=== PATIENT | female | born 1990 | race African-American/Black ===

== ENCOUNTER 2018-08-08 04:33 | Inpatient (IN) | payer OTHER ==
[~2018-08-08] VITALS: Ht 162.6 cm; Wt 86.1 kg
[~2018-08-08 04:33] MED LIST: FERR28TA PO; PREN-39 PO
[2018-08-08] MEDS ORDERED: LACTATED RINGER'S 1,000 ML IV SCH (05:36)
[2018-08-08 05:40] VITALS: Ht 162.6 cm; Wt 86.1 kg
[2018-08-08] MEDS ORDERED: OXYTOCIN 30 UNITS/LR 500 ML IV PRN ×2 (06:00→09:00)
[2018-08-08] MEDS ORDERED: CEFAZOLIN 2 GM/50 ML (PMX) 50 ML IVPB SCH (06:00)
[2018-08-08] MEDS ORDERED: OXYTOCIN 30 UNITS/LR 500 ML IV SCH ×2 (06:00→08:50)
[2018-08-08] MEDS ORDERED: MISOPROSTOL 200 MCG TAB PR PRN ×2 (06:00→09:00)
[2018-08-08] MEDS ORDERED: CARBOPROST 250 MCG INJ IM PRN ×2 (06:00→09:00)
[2018-08-08] MEDS ORDERED: METHYLERGONOVINE 0.2 MG INJ IM PRN ×2 (06:00→09:00)
[2018-08-08] MEDS ORDERED: BUPIVACAINE 0.75%/DEXT (SPINAL) 2 ML INJ ONE (07:33)
[2018-08-08] MEDS ORDERED: morphine SULFATE/PF (10 MG/10 ML) INJ ONE (07:33)
[2018-08-08] MEDS ORDERED: ONDANSETRON 4 MG INJ ONE (08:04)
[2018-08-08] MEDS ORDERED: METOCLOPRAMIDE 10 MG INJ ONE (08:05)
[2018-08-08] MEDS ORDERED: MIDAZOLAM 1 MG/ML 2 ML INJ ONE ×2 (08:14)
[2018-08-08] MEDS ORDERED: OXYTOCIN 10 UNIT INJ ONE ×2 (08:16→08:47)
[2018-08-08] MEDS ORDERED: LACTATED RINGER'S 1,000 ML IV ONE (08:22)
[2018-08-08] MEDS ORDERED: HYDROmorphONE 0.5 MG/0.5 ML SYG IV PRN ×2 (08:30)
[2018-08-08] MEDS ORDERED: KETOROLAC 30 MG INJ IV PRN (08:30)
[2018-08-08] MEDS ORDERED: NALBUPHINE HCL (10 MG/1 ML) INJ IV PRN (08:30)
[2018-08-08] MEDS ORDERED: MEPERIDINE 25 MG INJ IV PRN (08:30)
[2018-08-08] MEDS ORDERED: ZOLPIDEM 5 MG TAB PO PRN (08:30)
[2018-08-08] MEDS ORDERED: MIDAZOLAM 1 MG/ML 2 ML INJ IV PRN (08:30)
[2018-08-08] MEDS ORDERED: ONDANSETRON 4 MG INJ IV PRN ×2 (08:30)
[2018-08-08] MEDS ORDERED: NALOXONE (0.4 MG/ML) INJ IV PRN (08:30)
[2018-08-08] MEDS ORDERED: DIPHENHYDRAMINE 50 MG INJ IV PRN ×2 (08:30)
--- NOTE | 2018-08-08 08:31 | PREAC ---
Date/Time of Note Date/Time of Note DATE: 08/08/18 TIME: 08:28 Anesthesia Eval and Record Evaluation Time Pre-Procedure Interview DATE: 08/08/18 TIME: 07:33 Age 28 Sex female NPO: 8 hrs Preoperative diagnosis iup @ 39 wks., prev. c/s, contractions Planned procedure repeat c/s Past Medical History Past Medical History: Includes : : (4), Para: (3), Gestational age: (39 wks.) Surgery & Anesthesia Issues No known issue Meds Anticoagulation: No Beta Rui within 24 hr: No Reason Beta Rui not given: Pt. not on B-Rui Reported Medications Ferrous Sulfate (Ferrous Sulfate) 1 Tab Tablet, 1 TAB PO DAILY 12/23/12 Vits W-Ca,Fe,Fa(<1MG) ( Vitamins) 1 Tab Tablet, 1 TAB PO DAILY 12/23/12 Current Medications Lactated Ringer's 1,000 ml @ 125 mls/hr Q8H IV Last administered on 08/08/18at 06:15; Admin Dose 125 MLS/HR; Start 08/08/18 at 05:36 Cefazolin Sodium/ Dextrose 50 ml @ 100 mls/hr ONCE IVPB ; Start 08/08/18 at 06:00 Oxytocin/Lactated Ringer's 500 ml @ 125 mls/hr POST IV ; Start 08/08/18 at 06:00 Oxytocin/Lactated Ringer's 500 ml @ 0 mls/hr ONCE PRN IV .VAGINAL BLEEDING; Start 08/08/18 at 06:00 Methylergonovine Maleate (Methergine) 0.2 mg ONCE PRN IM .VAGINAL BLEEDING; Start 08/08/18 at 06:00 Carboprost Tromethamine (Hemabate) 250 mcg ONCE PRN IM .VAGINAL BLEEDING; Start 08/08/18 at 06:00 Misoprostol (Cytotec) 1,000 mcg ONCE PRN [place] .VAGINAL BLEEDING; Start 08/08/18 at 06:00 Naloxone HCl (Narcan) 0.1 mg Q2M PRN IV .RESP RATE; Start 08/08/18 at 08:30; Stop 08/09/18 at 08:29; Status UNV Ketorolac Tromethamine (Toradol) 30 mg Q6H PRN IV PAIN AFTER CSECTION; Start 08/08/18 at 08:30; Stop 08/09/18 at 08:29; Status UNV Hydromorphone HCl (Dilaudid) 0.2 mg Q3H PRN IV .PAIN 1-5; Start 08/08/18 at 08:30; Stop 08/09/18 at 08:29; Status UNV Hydromorphone HCl (Dilaudid) 0.4 mg Q3H PRN IV .PAIN 6-10; Start 08/08/18 at 08:30; Stop 08/09/18 at 08:29; Status UNV Diphenhydramine HCl (Benadryl) 25 mg Q6H PRN IV .ITCHING; Start 08/08/18 at 08:30; Stop 08/09/18 at 08:29; Status UNV Nalbuphine HCl (Nubain) 2 mg ONCE PRN IV .ITCHING; Start 08/08/18 at 08:30; Stop 08/09/18 at 08:29; Status UNV Ondansetron HCl (Zofran Inj) 4 mg Q6H PRN IV .NAUSEA/VOMITING; Start 08/08/18 at 08:30; Stop 08/09/18 at 08:29; Status UNV Zolpidem Tartrate (Ambien) 5 mg HS MAY REPEAT X 1 PRN PO .INSOMNIA; Start 08/08/18 at 08:30; Stop 08/09/18 at 08:29; Status UNV Miscellaneous Information (* Miscellaneous Pharmacy Order) Duramorph: 0.2 mg Spi... GIVEN XX ; Start 08/08/18 at 08:30; Status UNV Lactated Ringer's 1,000 ml @ 1,000 mls/hr Q1H ONCE IV ; Start 08/08/18 at 08:22; Stop 08/08/18 at 09:21; Status UNV Ondansetron HCl (Zofran Inj) 4 mg PACU ORDER PRN IV NAUSEA/VOMITING; Start 08/08/18 at 08:30; Status UNV Meperidine HCl (Demerol) 25 mg PACU ORDER PRN IV .RIGORS; Start 08/08/18 at 08:30; Status UNV Diphenhydramine HCl (Benadryl) 25 mg PACU ORDER PRN IV .PRURITUS; Start 08/08/18 at 08:30; Status UNV Midazolam HCl (Versed) 0.5 mg PACU ORDER PRN IV .ANXIETY; Start 08/08/18 at 08:30; Status UNV Meds reviewed: Yes Allergies Coded Allergies: No Known Drug Allergy (Verified Allergy, Unknown, 09/12/08) Allergies Reviewed: Yes Labs/Studies Labs Reviewed: Reviewed by anesthesiologist Result Diagram: 08/08/18 0615 Laboratory Tests 08/08/18 06:15 Blood Bank Test 08/08/18 06:15 Antibody Screen NEGATIVE Blood Type A POSITIVE Rh Immune Globulin Candidate NO test: Positive Pre-procedure Exam Airway: Adequate mouth opening, Adequate thyromental dist Mallampati: Mallampati II Teeth: Normal Lung: Normal Heart: Normal ASA Physical Status ASA physical status: 2 Emergency: E Planned Anesthetic General/MAC: TIVA Neuraxial: Spinal Planned Pain Management Sub-arachniod narcotics Pre-operative Attestations Prior to commencing anesthesia and surgery, the patient was re-evaluated, there was verification of: *The patient's identity *The results of appropriate recent lab work and preoperative vital signs *The above evaluation not changing prior to induction *Anesthetic plan, risk benefits, alternative and complications discussed with patient/family; questions answered; patient/family understands, accepts and wishes to proceed. EWELINA SAEED MD Aug 08, 2018 08:31
--- NOTE | 2018-08-08 08:32 | PAC ---
Date/Time of Note Date/Time of Note DATE: 08/08/18 TIME: 14:00 Post-Anesthesia Notes Post-Anesthesia Note Activity: WNL Respiratory function: WNL Cardiovascular function: WNL Mental status: Baseline Pain reasonably controlled: Yes Hydration appropriate: Yes Nausea/Vomiting absent: Yes EWELINA SAEED MD Aug 08, 2018 08:32
--- NOTE | 2018-08-08 08:34 | OPPN ---
Date/Time of Note Date/Time of Note DATE: 08/09/18 TIME: 00:30 Anesthesia Follow up Anesthesia Follow up Respiratory function: WNL Cardiovascular function: WNL Comments S: pt. pod #1, min. bt pain. min. need for bt pain meds ie. nsaids/opiates. ambulating. min. n/v O: vss, afeb. A: min. bt pain sec. to it mso4. P: no complications. EWELINA SAEED MD Aug 08, 2018 08:34
[2018-08-08] MEDS ORDERED: DIPHENHYDRAMINE 50 MG INJ ONE (08:38)
[2018-08-08] MEDS ORDERED: KETOROLAC 30 MG INJ ONE (08:49)
--- NOTE | 2018-08-08 08:50 | OPPN ---
Date/Time of Note Date/Time of Note DATE: 08/08/18 TIME: 08:47 Operative Report Planned Procedure Procedure date Aug 08, 2018 Procedure(s) repeat low transverse CD with lysis of adhesions Performed by see signature line Mobile Pet Groomer: ANNA CHERY MD 2nd Mobile Pet Groomer none Pre-procedure diagnosis iup at 39 wks ga, previous CD X 3 desires elective repeat CD, decline [id number] Anesthesia Type: Pyfyn7h spinal Post-Procedure Post-procedure diagnosis same Findings a viable male 9/9 weight 8lb 5lb. adhesion b/t the anterior utrerus and omentum. normal uterus tubes and ovaries Estimated Blood Loss: 500 - 600 mls (500) Specimen(s) none Grafts/Implant(s) none Complication(s) none KISHOR WALTERS MD Aug 08, 2018 08:50
[2018-08-08] MEDS: CEFAZOLIN 2 GM/50 ML (PMX) 50 ML IVPB SCH ×2 (09:00→17:15)
[2018-08-08] MEDS: SENNA/DOCUSATE NA (8.6MG/50MG) TAB PO SCH ×2 (09:00→20:53)
[2018-08-08] MEDS ORDERED: NACL 0.9% 3 ML SYG IV SCH (09:00)
[2018-08-08] MEDS ORDERED: LANOLIN HPA 1 PKT TOP PRN (09:00)
--- NOTE | 2018-08-08 09:32 | PREOPHP ---
DATE OF ADMISSION: 08/08/2018 HISTORY OF PRESENT ILLNESS: Ms. Deshawn Hinton is a 28-year-old 4, para 3, EDC 08/15/2018 intr auterine at 39 weeks gestational age with a history of previous x 3, [facility]. She denies any contractions, vaginal bleeding, or discharg e. Her care took place with Dr. Bonilla. PAST MEDICAL HISTORY: None. MEDICATIONS: vitamins. PAST SURGICAL HISTORY: Previous section x 3. OBSTETRIC HISTORY: Previous section x 3. GYNECOLOGIC HISTORY: 12, regular 3 to 4 days. Denies any sexually transmitted disease. Sexually ac tive with 1 partner. SOCIAL HISTORY: Denies any smoking, drugs or alcohol. FAMILY HISTORY: None. REVIEW OF SYSTEMS: All within normal except history of present illness. PHYSICAL EXAMINATION: HEENT: Within normal. LUNGS: CTA bilateral. CARDIOVASCULAR: S1, S2, regular rhythm. ABDOMEN: Gravid, nontender. Negative CVA bilateral. EXTREMITIES: No calf tenderness. PELVIC: Vaginal exam deferred. heart tracing category 1. [place]: Occasional contractions. ASSESSMENT: Intrauterine at 39 weeks gestational age, previous x 3, desires elec tive repeat delivery, declines vaginal after . PLAN: Consent for repeat delivery. Risks, benefits and alternatives explained. All questi ons were answered. Dictated By: KISHOR BATRES/JUAN Conf#: [id number] DID#: [id number]
--- NOTE | 2018-08-08 10:20 | OPR ---
DATE OF OPERATION: 08/08/2018 PREOPERATIVE DIAGNOSES: Intrauterine at 39 weeks gestational age, previous x3, d esires elective repeat delivery, declined . POSTOPERATIVE DIAGNOSES: Intrauterine at 39 weeks gestational age, previous x3, d esires elective repeat delivery, declined . OPERATION PERFORMED: Repeat low transverse delivery with lysis of adhesions. SURGEON: Duy Gaffney MD. KNOCK OUT HAND: Dr. Bello. ANESTHESIA: Spinal. COMPLICATIONS: None. ESTIMATED BLOOD LOSS: 500 mL. FINDINGS: A viable male, 9 and 9 respectively at 1 and 5 minutes, weight 8 pounds 5 ounces, po sitive adhesions between the anterior uterus and omentum. Normal uterus, tubes and ovaries. DESCRIPTION OF PROCEDURE: After explaining the risks, benefits and alternatives, the patient had con sented and signed in chart, the patient was taken to the operating room where spinal anesthesia was f ound to be adequate. She was then prepared and draped in a normal sterile fashion in dorsal supine p osition with a leftward tilt. A Pfannenstiel skin incision was then made with a scalpel and carried to the underlying layer of the fascia. The fascia was incised in the midline and incision extended l aterally with Echols scissors. The superior aspect of the fascial incision was grasped with curved cla mps, elevated and the underlying rectus muscles dissected off bluntly. Attention was then turned to the inferior aspect of incision, which in similar fashion was grasped, tented up with Neeta clamps a nd the rectus muscles dissected off bluntly. The rectus muscle was in midline, peritoneum identified, tented up, and incised sharply with Metzenbaum scissors. The peritoneal incision was ext ended superiorly and inferiorly. At this point, the omentum was carefully dissected off from the ant erior uterus with good hemostasis noted. At this point, I had good visualization and the bladder was observed. The bladder blade was then inserted and the vesicouterine identified, grasped with pickup s and entered sharply with Metzenbaum scissors. This incision was extended laterally and a bladder f lap created digitally. The bladder blade was then reinserted and lower segment incised in transverse fashion with the scalpel. The uterine incision was extended laterally. The bladder blade was remov ed and the 's head delivered atraumatically. The nose and mouth were suctioned, cord clamped a nd cut. The was handed off to awaiting last puller. The placenta was then removed. The brittney nathen was exteriorized and cleared of all clots and debris. The uterine incision was repaired with 1-0 chromic in a running locked fashion. Second layer of same suture was used for hemostasis and imbric ation. The uterus was returned to the abdomen. The gutters were cleared of all clots. The peritone um and rectus abdominis muscles were reapproximated with 3-0 Vicryl in interrupted fashion. The fasc ia was reapproximated with 0 Vicryl in a running fashion. The skin was closed with absorbable staple s. The patient tolerated procedure well. Sponge, lap and needle counts were correct. The patient w as taken to recovery room in stable condition. Dictated By: DUY BATRES/JUAN Conf#: [id number] DID#: [id number]
[2018-08-08 11:40] VITALS: BP 123/63; PULSE 89; RESP 18
[2018-08-08 12:40] VITALS: BP 111/55; PULSE 95; RESP 17
[2018-08-08] MEDS: LACTATED RINGER'S 1,000 ML IV SCH (15:00)
[2018-08-08] MEDS: OXYTOCIN 30 UNITS/LR 500 ML IV SCH (15:10)
[2018-08-08 16:00] VITALS: BP 109/58; PULSE 98; RESP 18
[2018-08-08 20:00] VITALS: BP 113/58; PULSE 97; RESP 20
[2018-08-09] VITALS: BP 101/53; PULSE 95; RESP 16
[2018-08-09] MEDS: CEFAZOLIN 2 GM/50 ML (PMX) 50 ML IVPB SCH (00:31)
[2018-08-09] MEDS: OXYTOCIN 30 UNITS/LR 500 ML IV SCH (01:00)
[2018-08-09] MEDS: LACTATED RINGER'S 1,000 ML IV SCH (02:06)
[2018-08-09 04:00] VITALS: BP 104/59; PULSE 106; RESP 16
[2018-08-09 08:10] VITALS: BP 100/59; PULSE 88; RESP 16
[2018-08-09] MEDS ORDERED: OXYCODONE/ACETAMINOPHEN (5/325) TAB PO PRN (08:30)
[2018-08-09] MEDS ORDERED: CEFAZOLIN 2 GM/50 ML (PMX) 50 ML IVPB ONE (09:30)
[2018-08-09] MEDS: SENNA/DOCUSATE NA (8.6MG/50MG) TAB PO SCH ×2 (09:54→21:00)
--- NOTE | 2018-08-09 14:00 | QN ---
Documentation Comment progress note pod 1 patient seen and evaluated no complaints vs stable afebrile ab dressing clean/dry extremity no edema no calf tenderness a/ sp repeat cd pod 1 stable afebrile p/ encourage ambulation KISHOR WALTERS MD Aug 09, 2018 14:00
[2018-08-09] MEDS: IBUPROFEN 800 MG TAB PO SCH ×2 (14:23→21:39)
[2018-08-09 15:55] VITALS: BP 114/58; PULSE 97; RESP 18
[2018-08-09] MEDS: OXYCODONE/ACETAMINOPHEN (5/325) TAB PO PRN (18:16)
[2018-08-09 20:15] VITALS: BP 118/63; PULSE 91; RESP 18
[2018-08-10] MEDS: OXYCODONE/ACETAMINOPHEN (5/325) TAB PO PRN (00:14)
[2018-08-10 04:14] VITALS: BP 111/65; PULSE 87; RESP 18
[2018-08-10] MEDS: IBUPROFEN 800 MG TAB PO SCH ×3 (05:33→21:37)
--- NOTE | 2018-08-10 08:00 | QN ---
Documentation Comment progress note pod 2 patient seen and evaluated no complaints vs stable afebrile ab soft nt c/d/i no distention extremity no edema no calf tenderness a/ sp repeat cd pod 2 stable afebrile p/ discharge home tomorrow KISHOR WALTERS MD Aug 10, 2018 08:00
--- NOTE | 2018-08-10 08:01 | PD.PPDC ---
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 Instruction Condition Klarw4Gs Patient Condition: Yjizo4h Good Diet Wfrya0Nn Diet: Ieewx1i Resume Regular Diet Activity/Restrictions [id number] Activity: Iucqi8i Normal Activity May Shower [id number] Restrictions: Euvxa5f No Exercising No Lifting No Driving No Sexual Activity Nothing in the Vagina No Combine No Tampons, douche Follow-up Follow-up with Physician: 2, Week/Weeks Return to clinic for [id number] PRODUCTION FLOATER Instructions: Dbwoo8c Fever greater than 101 Chills Worsening abdominal pain Excessive Vaginal Bleeding More than 2 pads per hour Unable to tolerate diet Tlmsh0Iq OB Instructions: Syzmw7l Breast Tenderness Depression Blurried Vision Headache [id number] Surgical Instructions: Adqpw9m Incisional Drainage Incisional Redness KISHOR WALTERS MD Aug 10, 2018 08:01
[2018-08-10 08:15] VITALS: BP 112/65; PULSE 90; RESP 20
[2018-08-10] MEDS: SENNA/DOCUSATE NA (8.6MG/50MG) TAB PO SCH ×2 (09:00→21:36)
--- NOTE | 2018-08-10 09:14 | DS ---
DATE OF ADMISSION: 08/08/2018 DATE OF DISCHARGE: 08/10/2018 PRIMARY DIAGNOSIS: Intrauterine at 39 weeks gestational age, previous x3, desire s elective repeat delivery, declined . PROCEDURE: Repeat low transverse delivery. CONDITION ON DISCHARGE: Stable. ACTIVITY: None per vagina, no lifting x6 weeks. DIET: Regular. MEDICATIONS ON DISCHARGE: Motrin 800 mg p.o. q.8h. p.r.n. pain. DISCHARGE SUMMARY: Ms. Hinton underwent a repeat low transverse delivery on 08/08/2017. She had a viable male, 9 and 9 respectively at 1 and 5 minutes, weight 8 pounds 5 ounces. She had an uneventful postop day 1 and 2. She was discharged on postop day 3. Her incision is clean, dry, and intact. She is ambulating, tolerating diet, positive flatulence, positive bowel movements. She will follow up in the clinic in 2 weeks for /postop care. Dictated By: KISHOR BATRES/JUAN Conf#: [id number] DID#: [id number] CC: KISHOR WALTERS MD;*EndCC*
[2018-08-10 16:03] VITALS: BP 112/72; PULSE 86; RESP 18
[2018-08-10 20:00] VITALS: BP 128/74; PULSE 94; RESP 18
[2018-08-11] MEDS: OXYCODONE/ACETAMINOPHEN (5/325) TAB PO PRN (01:32)
[2018-08-11 04:00] VITALS: BP 103/60; PULSE 72; RESP 17
[2018-08-11] MEDS: IBUPROFEN 800 MG TAB PO SCH ×2 (06:19→14:43)
[2018-08-11 08:00] VITALS: BP 118/69; PULSE 65; RESP 18
[2018-08-11] MEDS: SENNA/DOCUSATE NA (8.6MG/50MG) TAB PO SCH (09:00)
--- NOTE | 2018-08-17 11:27 | DELSUM ---
Delivery Summary A-C Datetime Report Generated by CPN: 08/17/2018 11:20 DELIVERY PERSONNEL Furnace Liner: Mao, Brandy MATERNAL INFORMATION Delivery Anesthesia: Spinal Medications in Delivery: See Anesthesia Notes Delivery QBL (ml): 600 Placenta Cultured: No Maternal Complications: None LABOR SUMMARY EDC: 08/15/2018 00:00 No. Babies in Womb: 1 Attempted: No Labor Anesthesia: None LABOR INFORMATION Reason for Induction: Not Applicable Oxytocin: N/A Group B Beta Strep: Negative Antibiotics # of Doses: 1 Antibiotics Time of Last Dose: 08/08/2018 07:50 Steroids Given: None Reason Steroids Not Administered: Not Applicable MEMBRANES Membranes Rupture Method: Artificial Rupture of Membranes: 08/08/2018 08:17 Length of Rupture (hr): 0.02 Amniotic Fluid Color: Clear Amniotic Fluid Amount: Moderate Amniotic Fluid Odor: None STAGES OF LABOR Stage 3 hr: 0 Stage 3 min: 1 CSECTION DELIVERY Primary Indication: Repeat Elective Secondary Indication: N/A CSection Urgency: Elective CSection Incidence: Repeat Labor: No Labor Elective: Elective CSection Incision: Lower Uterine Transverse BABY A INFORMATION Delivery Date/Time: 08/08/2018 08:18 Method of Delivery: Born in Route : No : N/A Forceps: N/A Vacuum Extraction: N/A Shoulder Dystocia : No SHOULDER DYSTOCIA BABY A Infant Delivery Date/Time: 08/08/2018 08:18 PRESENTATION/POSITION BABY A Presentation: Cephalic Cephalic Presentation: Vertex Vertex Position: Left Occipital Anterior Breech Presentation: N/A PLACENTA INFORMATION BABY A Placenta Delivery Time : 08/08/2018 08:19 Placenta Method of Delivery: Manual Removal Placenta Status: Delivered SCORES BABY A Heart Rate 1 min: >100 bpm Resp Effort 1 min: Good Cry Reflex Irritability 1 min: Cough/Sneeze/Pulls Away Muscle Tone 1 min: Active Motion Color 1 min: Body [place], Extremit Blue Resuscitation Effort 1 min: Tactile Stimulation SCORE 1 MIN: 9 Heart Rate 5 min: >100 bpm Resp Effort 5 min: Good Cry Reflex Irritability 5 min: Cough/Sneeze/Pulls Away Muscle Tone 5 min: Active Motion Color 5 min: Body [place], Extremit Blue Resuscitation Effort 5 min: Tactile Stimulation SCORE 5 MIN: 9 INFANT INFORMATION BABY A Gestational Age at Delivery: 39.0 Gestational Status: Full Term- 39- 40.6 Weeks Infant Outcome : Liveborn Infant Condition : Stable Infant Sex: Male IDENTIFICATION/MEDS BABY A ID Band Number: [id number] ID Band Location: Right Leg; Left Arm Sensor Applied: Yes Sensor Number: [id number] Sensor Location : Cord Clamp Vitamin K Given : Not Given Erythromycin Given: Not Given WEIGHT/LENGTH BABY A Birthweight (gm): 3775 Infant Weight (lb): 8 Weight (oz): 5 Length (in): 21.00 Length (cm): 53.34 CORD INFORMATION BABY A No. 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
== END 2018-08-11 15:20 | disposition home or self-care (01) | DRG 788 ==
LOC: L-D 05:30 → PP1 12:05
PROVIDERS: ADMIT Obstetrics & Gynecology; ATTEND Obstetrics & Gynecology
PROC: 3E033VJ Introduction of Other Hormone into Peripheral Vein, Percutaneous Approach (ICD-10-PCS; 2018-08-08)
PROC: 10D00Z1 Extraction of Products of Conception, Low, Open Approach (ICD-10-PCS; principal; 2018-08-08 07:30)
DX: O65.5 Obstructed labor due to abnormality of maternal pelvic organs (principal); O34.211 Maternal care for low transverse scar from previous cesarean delivery; Z3A.39 39 weeks gestation of pregnancy; Z37.0 Single live birth
CPT/HCPCS: 85025; 85610; 85730; 86592; 86850; 86900; 86901; 87340; 99464; J0690; J1200; J1885; J2250; J2274; J2405; J2590; J2765; J7120